=== PATIENT | female | born 1985 | race Caucasian/White ===

== ENCOUNTER 2019-02-02 10:29 | Outpatient (REF) | payer BC, SELFPAY ==
--- NOTE | 2019-02-02 08:45 | PAPFT_PTH ---
PATIENT: Daja Butt LOC: [facility]#:[id number] AGE/SX: 33/F ROOM: RE02/02/[address]: Indira Lainez : 1985 BED: DIS: 02/02/2019 SPEC #: [id number] RECD: 02/02/19 17:57 STATUS: CLAU REMarina #: [id number] ADILENE: 02/02/19 08:[address]: Indira Lainez DEPT: [facility] Cytology RECD BY: Kristin Sosa ENTERED: 02/02/19 17:58 SP TYPE: PAPFT OTHR DR: Reginald Chao Tissues: 1 - CX/ENDOCX FOR PAP SMEARS Procedures: PAP THIN PREP/[facility]VM Screening HPV DNA PROBE Comments: [id number]
== END 2019-02-02 10:49 ==
LOC: NCHCN 10:29
PROVIDERS: PCP Nurse Practitioner Family; Visit Provider Family Medicine
DX: Z00.00 Encounter for general adult medical examination without abnormal findings (principal); Z12.4 Encounter for screening for malignant neoplasm of cervix; Z11.51 Encounter for screening for human papillomavirus (HPV)
CPT/HCPCS: 88142; 87624

== ENCOUNTER 2019-09-12 09:28 | Outpatient (REF) | payer BC, SELFPAY | END 2019-09-12 09:48 | LOC: LBO 09:28 | PROVIDERS: PCP Student in an Organized Health Care Education/Training Program; Visit Provider Internal Medicine | DX: N39.0 Urinary tract infection, site not specified (principal) | CPT/HCPCS: 87077; 87086; 87186 ==

== ENCOUNTER 2019-12-15 08:07 | Outpatient (CLI) | payer BC, SELFPAY ==
[2019-12-16 17:57] LABS: COVID-19 RT-PCR Result NEGATIVE (Negative)
== END 2019-12-15 08:27 ==
PROVIDERS: PCP Student in an Organized Health Care Education/Training Program; Visit Provider Surgery Plastic and Reconstructive Surgery
DX: Z11.59 Encounter for screening for other viral diseases (principal); Z01.818 Encounter for other preprocedural examination
CPT/HCPCS: U0003

== ENCOUNTER 2020-07-26 09:13 | Outpatient (CLI) | payer BC, SELFPAY ==
[2020-07-27 13:13] LABS: COVID-19 RT-PCR UVMMC Result Negative (Negative)
== END 2020-07-26 09:14 | disposition home or self-care (01) ==
PROVIDERS: PCP Student in an Organized Health Care Education/Training Program; Visit Provider Student in an Organized Health Care Education/Training Program
DX: Z20.822 Contact with and (suspected) exposure to COVID-19 (principal)
CPT/HCPCS: U0003

== ENCOUNTER 2020-11-18 15:51 | Outpatient (REF) | payer BC, SELFPAY | END 2020-11-18 15:52 | disposition home or self-care (01) | LOC: LBN 15:51 | PROVIDERS: PCP Student in an Organized Health Care Education/Training Program; Visit Provider Nurse Practitioner Adult Health | DX: N39.0 Urinary tract infection, site not specified (principal) | CPT/HCPCS: 87077; 87086; 87186 ==

== ENCOUNTER 2021-03-10 09:53 | Outpatient (CLI) | payer BC, SELFPAY ==
--- NOTE | 2021-03-10 09:30 | DI.RAD_ITS ---
Exam(s) XR KNEE RT 3V AP,LAT,YONATAN EXAM: XR KNEE RT 3V AP,LAT,YONATAN CLINICAL HISTORY: painless knee effusion; atraumatic, M25.461. TECHNIQUE: 2D digital imaging was performed. COMPARISON: No exams were available for comparison FINDINGS: No evidence of acute fracture but there does appear be a joint effusion which would signify possible internal derangement. No degenerative changes. No osseous lesions. IMPRESSION: DATA REPOSITORY: RADIATION DOSE DELIVERED:
== END 2021-03-10 10:13 ==
PROVIDERS: PCP Student in an Organized Health Care Education/Training Program; Visit Provider Nurse Practitioner Adult Health
DX: M25.461 Effusion, right knee (principal)
CPT/HCPCS: 73562

== ENCOUNTER 2021-03-10 11:34 | Outpatient (REF) | payer BC, SELFPAY ==
[2021-03-10 15:49] LABS: Abs Immature Grans 0.01 10^3/uL (0.0-0.06); Absolute Basophil Count 0.03 10^3/uL (0.0-0.2); Absolute Eosinophil Count 0.07 10^3/uL (0.0-0.7); Absolute Lymphocyte Count 1.52 10^3/uL (1.2-3.4); Absolute Monocyte Count 0.41 10^3/uL (0.1-0.8); Absolute Neutrophil Count 5.28 10^3/uL (1.2-6.7); Basophils % 0.4; HCT 40.8 % (36.0-46.0); HGB 13.1 g/dL (11.2-15.7); Immature Grans % 0.1; Lymphocytes % 20.8; MCH 29.2 pg (27.0-33.0); MCHC 32.1 % (32.0-36.0); MCV 91.1 fL (80-95); MPV 11.3 fL (8.0-11.0); Monocytes % 5.6; Neutrophils % 72.1; Nucleated RBC 0 %; Platelet Count 229 10^3/uL (130-400); RBC 4.48 10^6/uL (3.93-5.22); RDW 13.7 % (11.7-14.6); RDW-SD 46.2 fL; WBC 7.32 10^3/uL (4.4-10.8)
[2021-03-10 15:52] LABS: ESR 10 mm/hr (0-20)
[2021-03-10 18:18] LABS: Uric Acid 3.1 mg/dL (2.6-6.0)
[2021-03-10 21:51] LABS: Rheumatoid Factor <8.6 IU/mL (<12.0)
[2021-03-11 10:27] LABS: Cyclic Citrullinated Peptide <2.5 U/mL (<5.0)
[2021-03-11 10:45] LABS: Lyme Ab w Rflx to Lyme Confirm Negative (Negative)
== END 2021-03-10 11:35 | disposition home or self-care (01) ==
LOC: LBN 11:34
PROVIDERS: PCP Student in an Organized Health Care Education/Training Program; Visit Provider Nurse Practitioner Adult Health
DX: M25.661 Stiffness of right knee, not elsewhere classified; M25.461 Effusion, right knee
CPT/HCPCS: 85652; 86200; 84550; 85025; 86431; 86618

== ENCOUNTER 2021-10-02 09:52 | Outpatient (CLI) | payer BC, SELFPAY ==
--- NOTE | 2021-10-02 09:15 | DI.RAD_ITS ---
Exam(s) XR KNEE RT 1V EXAM: XR KNEE RT 1V CLINICAL HISTORY: eval R patellofemoral pain. TECHNIQUE: 2D digital imaging was performed. COMPARISON: CR XR KNEE RT 3V AP,LAT,YONATAN from 03/10/2021 FINDINGS: Single merchant's view Is situated normally. There is no narrowing of retropatellar space. No osteochondral defects. Bone density appears normal. No obvious degenerative subarticular cysts. IMPRESSION: DATA REPOSITORY: RADIATION DOSE DELIVERED:
== END 2021-10-02 09:53 | disposition home or self-care (01) ==
LOC: DIORS 09:52
PROVIDERS: PCP Student in an Organized Health Care Education/Training Program; Referring Provider Student in an Organized Health Care Education/Training Program; Visit Provider Student in an Organized Health Care Education/Training Program
DX: M22.2X1 Patellofemoral disorders, right knee (principal)
CPT/HCPCS: 73560

== ENCOUNTER → 2021-10-27 00:58 | Outpatient (CLI) | payer BC, SELFPAY ==
--- NOTE | 2021-10-27 06:30 | DI.MRI_ITS ---
Exam(s) MR LOWER JOINT RT WO EXAM: MR LOWER JOINT RT WO CLINICAL HISTORY: R KNEE PAIN,effusion,patellofemoral syndrome,m25.561,m22.2x1,m25.461 TECHNIQUE: Multiplanar multisequence MRI was performed.. COMPARISON: No exams were available for comparison FINDINGS: MR examination of the knee was performed according to the usual protocol. There is a large knee joint effusion knee joint effusion. No significant bony signal abnormality seen. Medial tibiofemoral joint: The articular cartilage of the tibia appears well maintained. However, th ere is thinning and irregularity of femoral condylar articular cartilage with an approximately 9 x 10 millimeter central defect. The meniscus and attachments appear intact. The medial collateral ligam ent appears intact. No posteromedial corner injury seen. Lateral tibiofemoral joint: The articular cartilage of the tibia appears well maintained. There is i rregular thinning of the central portion of the femoral articular cartilage with some small clefts pr esent centrally. The meniscus and attachments appear intact. The lateral collateral ligament comple x and posterolateral corner structures appear intact. Patellofemoral joint and extensor mechanism: The articular cartilage of the patellofemoral joint is a bnormal with a 17 x 13 millimeter free flap of trochlear articular cartilage which is not attached to the underlying femoral cortex and with moderate thinning of the articular cartilage of the lateral p atellar facet inferiorly with some clefts extending to the underlying cortical surface of the patella .. The superior and inferior patellar fat pads show moderate signal abnormality. The quadriceps tendon and patellar tendon appear intact with no evidence of a tear or significant cecilia ma. The medial and lateral retinacula appear intact. Cruciate ligaments: Cruciate ligaments and attachments appear normal with no evidence of a tear. Tibiofibular joint: No specific abnormality involving the tibiofibular joint. IMPRESSION: There are significant articular cartilage defects as described above involving patellofemoral joint a nd medial and lateral tibiofemoral joints. No other evidence of internal derangement. DATA REPOSITORY:
== END ==
PROVIDERS: PCP Student in an Organized Health Care Education/Training Program; Visit Provider Student in an Organized Health Care Education/Training Program
DX: M22.2X1 Patellofemoral disorders, right knee (principal); M25.461 Effusion, right knee; M25.561 Pain in right knee
CPT/HCPCS: 73721

== ENCOUNTER 2021-11-24 04:28 | Outpatient (CLI) | payer BC, SELFPAY ==
[2021-11-24 09:54] LABS: Calculated LDL 83 mg/dL (<100); Cholesterol 165 mg/dL (<200); HDL Cholesterol 72 mg/dL (40-60); Triglyceride 54 mg/dL (<150)
== END 2021-11-24 04:29 | disposition home or self-care (01) ==
PROVIDERS: PCP Student in an Organized Health Care Education/Training Program; Visit Provider Student in an Organized Health Care Education/Training Program
DX: Z13.220 Encounter for screening for lipoid disorders (principal)
CPT/HCPCS: 36415; 80061

== ENCOUNTER 2021-12-03 04:03 | Outpatient (CLI) | payer BC, SELFPAY ==
[2021-12-03 12:03] LABS: Source Nasal/Nares
[2021-12-03 18:22] LABS: COVID-19 PCR Negative (Negative)
== END 2021-12-03 04:04 | disposition home or self-care (01) ==
LOC: LBO 04:03
PROVIDERS: PCP Student in an Organized Health Care Education/Training Program; Visit Provider Student in an Organized Health Care Education/Training Program
DX: Z20.822 Contact with and (suspected) exposure to COVID-19 (principal); Z01.818 Encounter for other preprocedural examination
CPT/HCPCS: 87635

== ENCOUNTER 2021-12-05 08:56 | Day surgery (SDC) | payer BC, SELFPAY ==
[2021-12-05] VITALS (10 sets, daily range): BP systolic 100–123; BP diastolic 43–75; PULSE 67–87; RESP 15–20; TEMP 36.3–36.8; O2SAT 98–100; BMI 29.4
--- NOTE | 2021-12-05 09:54 | W.ANESPRE ---
General Info Date of Service Date Performed: 12/05/21 Height: 5 ft 3 in Weight: 75.296 kg Body Mass Index (BMI): 29.4 Surgical Procedure: Operation Date: 12/05/21 11:10 Proposed Procedure Side Surgeon p Knee Arthroscopy w/ any indicated Meniscal, Chondral and Synovial Surgery/ Possible Microfracture Right Odell Kirkpatrick MD Meds Allergies and Home Medications Allergies Allergy/AdvReac Type Severity Reaction Status Date / Time No Known Allergies Allergy Verified 12/05/21 09:22 Home Medication Medication Instructions Recorded multivitamin,gp-[id number] 1 tab PO DAILY 12/14/19 (Complete Multivitamin tablet) Current Visit Medications: Current Medications Generic Name Dose Route Start Last Admin Trade Name Freq PRN Reason Stop Dose Admin Ringer's Solution 1,000 mls @ 30 mls/hr 12/05/21 06:00 IV 01/03/22 23:59 INFUSION STEPHEN Cefazolin Sodium 2,000 mg/ 100 mls @ 200 mls/hr 12/05/21 06:00 Sodium Chloride IVPB 12/05/21 16:00 PREOP STEPHEN IV Miscellaneous Supplies 1 each 12/05/21 06:00 Iv Access IV 01/03/22 23:59 DIRECTED STEPHEN Oxycodone HCl 5 - 10 mg 12/05/21 07:02 Oxycodone 5 Mg Tab PO Q4H PRN PRN Sodium Chloride 0 ml 12/05/21 06:00 Normal Saline Flush 10 Ml Syr IV 01/03/22 23:59 PRN PRN Sodium Chloride 0 ml 12/05/21 06:00 Normal Saline 10 Ml Vial IJ 01/03/22 23:59 DIRECTED PRN Sterile Water 0 ml 12/05/21 06:00 Water,Injection,Sterile 10 Ml Vial IJ 01/03/22 23:59 DIRECTED PRN PFSH Active Problems Active Problems: Problem Status Onset Code Chondromalacia, 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 COVID-19 Nov 2020 Hx of sebaceous cyst Surgical History Surgical History H/O excision of epidermal inclusion cyst (~06/02/19) Status post incision and drainage Tobacco Smoking/Tobacco Use Status: Never Passive smoking exposure: No Alcohol Alcohol Intake: current Alcohol intake frequency: a few times a week Alcohol type: wine and hard liquor Substance Use Substance use: Never Substance use type: does not use Vital Signs and Lab Results Vital Signs Most Recent Vital Signs in EMR: Most Recent Vital Signs Temp Pulse Resp BP Pulse Ox 36.4 C L 76 18 123/75 100 12/05/21 09:23 12/05/21 09:23 12/05/21 09:23 12/05/21 09:23 12/05/21 09:23 Point of Care Results Point of Care Results: POC- Test(urine) Negative 12/05/21 09:23 Lab Results Blood Type / Crossmatch: No Data to Display Complete Blood Count: No Data to Display Complete Metabolic Panel: No Data to Display Liver Function Panel: No Data to Display Coagulation Panel: No Data to Display Cardiac Panel: No Data to Display Arterial Blood Gas: No Data to Display Venous Blood Gas: No Data to Display Pancreas Panel: No Data to Display Thyroid Panel: No Data to Display Infectious Disease: Coronavirus (COVID-19)(PCR) Negative (Negative) 12/03/21 07:55 Coronavirus 2019 Source Nasal/Nares 12/03/21 07:55 Blood Cultures: No Data to Display Toxicology Panel: No Data to Display Panel: No Data to Display Anesthesia Assessment and Plan Anesthesia History Personal History: No History of Anesthesia Complications Family History: No Family History of Anesthesia Complications Exercise Tolerance Exercise Tolerance: Metabolic Equivalents>4 Pertinent Negatives Pertinent Negatives: No Symptoms of GERD, No Major Cardiovascular Symptoms or Complaints and No Major Pulmonary Symptoms or Complaints Cardiac & Pulmonary Exam Cardiac Exam: Normal S1/S2 Heart Sounds Pulmonary Exam: Clear Bilateral Breath Sounds Implantable Cardiac Device Does patient have a Pacemaker or an ICD?: No Airway Exam Known Difficult Airway: No Mallampati Class: 1 Mouth Opening: Normal (> 3cm) Thyromental Distance: Greater than 3 cm Neck Range of Motion: Full ROM Neck Circumference: Normal Teeth Condition: Normal Dentition ASA Classification ASA Score: ASA 2 Emergency Case?: No NPO Status NPO Status: NPO Clears >2 hours, Solids >8 hours Status Status: Negative HCG Anesthesia Plan Resuscitation Status: Full Code Anesthesia Technique: General Anesthesia Airway Planned: LMA Monitors Used: Standard Monitors
[2021-12-05] MEDS: Lactated Ringers 1,000 ML 30 ML IV (10:13)
[2021-12-05] MEDS: ceFAZolin 2,000 MG in Normal Saline 100 ML 200 MG IVPB (10:42)
[2021-12-05] MEDS: Lidocaine 1.5 % Pres-Free W/EPI 1/200,000 30 ML VIAL (11:22)
[2021-12-05] MEDS: EPINEPHrine 30 MG/30 ML VIAL (11:23)
[2021-12-05] MEDS: Bupivacaine 0.25% Pres-Free 30 ML VIAL ×2 (11:24→11:47)
--- NOTE | 2021-12-05 11:30 | ROE_ITS ---
Operative Note Operative Note DATE OF PROCEDURE: 12/05/21 PRE-OP DIAGNOSIS: Right knee 1. Trochlea cartilage lesion 2. Medial femoral condyle cartilage lesion POST-OP DIAGNOSIS: same Right knee 1. Trochlea cartilage lesion 2. Medial femoral condyle cartilage lesion 3. Large loose cartilaginous body PROCEDURE: Right knee 1. Arthroscopic loose body removal, CPT #88582: Large loose cartilaginous body from posterior lateral compartment 2. Trochlea and medial femoral condyle microfracture, CPT #80938 3. Osteochondroplasty, CPT #44904: Medial gutter marginal osteophyte SURGEON: Odell Kirkpatrick SIGN LANGUAGE TRANSLATOR: None None ANESTHESIA TYPE: Local By Surgeon and General LMA/ETT Refer to Anesthesia Record ESTIMATED BLOOD LOSS: 5 PATHOLOGY: none sent TOURNIQUET TIME: 0 COMPLICATIONS: None Patient was transported to: PACU Patient's condition: stable Indications: Please see complete medical record for details. Findings: Exam under anesthesia: Full range of motion, no instability Arthroscopic findings: Moderately large central trochlear cartilage lesion, nearly full thickness measuring about 14 x 18 mm. Moderate sized central distal medial femoral condyle cartilage lesion, nearly full-thickness measuring about 8 x 12 mm. Intact medial lateral menisci. Intact ACL. Intact lateral articular cartilage. Procedure Description: In the operating room, genral anesthesia was induced. The patient was positioned supine on the operating room table. All bony prominences were well- padded. Preoperative antibiotics were administered. The knee was prepped and draped in the usual sterile fashion. The correct patient, procedure, and side of the procedure were all verified prior to incision. Exam under anesthesia was performed. 10 cc of 0.25% bupivacaine containing epinephrine was infiltrated about the planned anteromedial and anterolateral knee arthroscopy portals. The portals were established and a complete diagnostic arthroscopy was performed with relevant findings detailed above. The trochlea cartilage lesion was examined. The expected large unstable cartilage flap was not present. Instead the bed of the lesion was exposed. The margins were probed and a curette used to establish vertical stable whitaker. The bed of the lesion was lightly debrided of chronic fibrinous material overlying bone. Similarly, the medial femoral condyle cartilage lesion was inspected and prepared. Along the medial gutter there was a small marginal osteophyte. The mechanical shaver was used to perform an osteochondroplasty and resect this to a smooth margin. The large unstable cartilage flap from the trochlea was not found suprapatellar, medial or lateral gutter, medial lateral compartment, or intercondylar area. Prior to bleeding the case with microfracture, the arthroscope was driven through the notch into the posterior lateral compartment. The entire trochlear cartilage piece measuring about 15 x 17 mm was present posterior to the lateral femoral condyle. Carefully, and arthroscopic grasper was directed between the lateral wall into the posterior lateral compartment and direct pressure from behind the knee used to assist the piece into the grasper. This large cartilaginous loose body was brought into the anterior intercondylar area. The anteromedial portal was dilated to accommodate removal. A straight snap was then used to secure the cartilage piece and remove it in entirety under arthroscopic visualization. It contained full?thickness cartilage with no bone. It was placed into a specimen cup for the patient. Lastly, the microfracture was done using a 1.6 mm K wire and sequentially dri lling the medial femoral condyle lesion through the anterior medial portal. Percutaneously, just medial to the patella with the patella translated laterally needle localization followed by K wire used to appropriately drill the trochlear lesion at a perpendicular angle. Both lesions had excellent expression of bone marrow factors with inflow turned off about the beds of the cartilage lesions. Under direct arthroscopic visualization an 18-gauge needle was passed into the knee from superolateral into the suprapatellar pouch. The knee was copiously irrigated with arthroscopic fluid until there was a clear effluent before being drained of all fluid. The anteromedial and anterolateral portals were closed in 3-0 Monocryl in a buried interrupted fashion. 20 cc of 0.25% bupivacaine plain containing 4 mg of morphine was infiltrated into the knee through the previously placed needle. Mastisol, Steri-Strips, and 4 x 4 gauze were applied over the incisions followed by sterile soft roll. The knee was then wrapped gently with an LINCOLN comressive bandage. The patient awoke from anesthesia without complication and was transferred to the recovery room in a stable condition.
[2021-12-05] MEDS: MORPHine 4 MG/ML SYR (11:47)
[2021-12-05] MEDS: fentaNYL 100 MCG/2 ML VIAL IVP ×3 (12:25→12:59)
--- NOTE | 2021-12-05 12:33 | W.PM.DSUDISC ---
Discharge Plan Disposition Patient Disposition: HOME Condition: Stable Discharge Details Reason For Visit: Right knee surgery Attending Provider: Odell Kirkpatrick Primary Care Provider: Fozia Bennett Home Meds and New Rx's Prescriptions: New aspirin 81 mg tablet,delayed release (DR/EC) 81 mg PO DAILY 14 Days Qty: 14 0RF naproxen 250 mg tablet 250 - 500 mg PO BID PRNQty: 40 0RF Rx Instructions: take with a meal oxycodone 5 mg tablet 5 - 10 mg PO Q4H MDD 30 mg PRN (Reason: moderate to severe pain) Qty: 18 0RF Continued Complete Multivitamin Tablet 1 tab PO DAILY Discharge Instructions Additional Instructions: Surgery: Right knee arthroscopy with trochlear and medial femoral condyle microfracture and removal of loose cartilaginous body Activity: Partial weightbearing (less than 50%) with crutches for 6 weeks. Restore full knee extension as soon as possible. Advance flexion as comfort allows. Recommend avoiding sports, pivoting, and squatting for 2-3 months. A physical therapy prescription will be prescribed in the office at follow-up if needed. Prescriptions: Aspirin 81 mg take 1 daily to prevent a blood clot for 14 days Naproxen 250 mg take 1-2 every 12 hours with a meal as needed for moderate pain Oxycodone 5 mg take 1-2 every 4-6 hours as needed for severe pain You may use [id number] Tylenol (acetaminophen) as needed for mild pain. These pain medications may be taken all at once or in different combinations as needed. Also, recommend Colace (docusate) as a stool softener as surgery and pain medicine cause constipation. You may try [id number]-uea-[id number] diphenhydramine (Benadryl) 25-50 mg nightly as a sleep aid Dressings: Leave dressing in place for 3 days. May then remove and leave open to air or cover incisions with Band-Aids. May shower after 5 days. Follow-up: 10-[address] Kirkpatrick Let us know right away if you develop any redness, drainage, fevers, chest pain, or trouble breathing. Do not drink alcohol or drive for at least 24 hours after anesthesia. Please call the office during business hours with any questions or concerns. Discharge Orders Discharge Orders: Discharge Order (Routine); Ordered 12/05/21 Ordered By: Odell Kirkpatrick
--- NOTE | 2021-12-05 13:46 | W.ANESPOSTOP ---
Postoperative Evaluation Date, Time and Location Date Performed: 12/05/21 Time Performed: 13:46 Patient Location: Day Surgery Unit Vital Signs Most Recent Imported Vital Signs: Most Recent Vital Signs Temp Pulse Resp BP Pulse Ox 36.4 C L 78 18 111/54 L 100 12/05/21 13:21 12/05/21 13:21 12/05/21 13:21 12/05/21 13:21 12/05/21 13:21 Pain Score Most Recent Pain Score: Most Recent Pain Score Pain Level 5 12/05/21 13:21 Assessment Mental Status: Awake (Alert & Oriented to Patient Baseline) Airway and Respiratory Function: Patent airway with normal (patient baseline) respiratory exam Cardiovascular Function: Hemodynamically Stable Hydration Status: Adequately Hydrated Nausea & Vomiting: No Nausea or Vomiting Pain: Pain is tolerable per patient Peripheral Nerve Block: Patient did not receive a nerve block
[2021-12-05] MEDS: Acetaminophen 500 MG TAB 1000 MG PO (13:55)
== END 2021-12-05 14:50 | disposition home or self-care (01) ==
PROVIDERS: PCP Student in an Organized Health Care Education/Training Program; Visit Provider Student in an Organized Health Care Education/Training Program
PROC: (CPT 29870; principal; 2021-12-05 11:00)
DX: M23.41 Loose body in knee, right knee (principal); M23.91 Unspecified internal derangement of right knee; M25.761 Osteophyte, right knee
CPT/HCPCS: 29879; J0690; J1100; J1885; J2250; J2270; J2405; J2704; J3010

== ENCOUNTER 2022-03-07 11:24 | Outpatient (REF) | payer BC, SELFPAY ==
[2022-03-07 20:05] LABS: Bacteria Many HPF (Negative); C & S Indicated? C&S Done As Ordered; Casts Negative LPF (Negative); Crystals Negative HPF (Negative); Epithelial Cells Few HPF (Negative); Mucus Moderate (Negative)
== END 2022-03-07 11:25 | disposition home or self-care (01) ==
LOC: LBN 11:24
PROVIDERS: PCP Student in an Organized Health Care Education/Training Program; Visit Provider Physician Assistant Medical
DX: R30.0 Dysuria (principal)
CPT/HCPCS: 87077; 81015; 87086; 87186

== ENCOUNTER 2022-10-28 03:51 | Outpatient (CLI) | payer BC, SELFPAY ==
[2022-10-28 09:17] LABS: Anion Gap 8.2 mmol/L (3-11); BUN 14 mg/dL (7-18); CO2 27.8 mmol/L (21.0-32.0); CREATININE 0.8 mg/dL (0.55-1.02); Calcium 8.7 mg/dL (8.5-10.1); Chloride 104 mmol/L (98-107); Estimated GFR 99.09 (mL/min/1.73m2); Glucose 82 mg/dL (74-106); Potassium 3.7 mmol/L (3.5-5.1); Sodium 140 mmol/L (136-145); TSH (W/Ref FT4) 1.76 uIU/mL (0.36-3.74)
== END 2022-10-28 03:52 | disposition home or self-care (01) ==
PROVIDERS: PCP Student in an Organized Health Care Education/Training Program; Visit Provider Student in an Organized Health Care Education/Training Program
DX: N92.6 Irregular menstruation, unspecified; R53.83 Other fatigue; I10 Essential (primary) hypertension
CPT/HCPCS: 36415; 80048; 84443

== ENCOUNTER 2025-01-24 14:47 | Outpatient (REF) | payer BC, SELFPAY ==
--- NOTE | 2025-01-24 14:30 | PAPFT_PTH ---
PATIENT: Daja Butt LOC: [facility] U#:[id number] AGE/SX: 39/F ROOM: RE01/24/[address]: Cherry Quintero APRN : 1985 BED: DIS: 01/24/2025 SPEC #: [id number] RECD: 01/25/25 12:48 STATUS: CLAU REQ #: [id number] ADILENE: 01/24/25 14:[address]: Cherry Quintero DEPT: [facility] Cytology RECD BY: Kristin Sosa Tissues: 1 - CX/ENDOCX FOR PAP SMEARS Procedures: PAP THIN PREP/UVM Screening HPV DNA PROBE Comments: [id number] (HPV 16 & 18/45)
== END 2025-01-24 14:48 | disposition home or self-care (01) ==
LOC: LBN 14:47
PROVIDERS: PCP Nurse Practitioner Adult Health; Visit Provider Nurse Practitioner Adult Health
DX: Z12.4 Encounter for screening for malignant neoplasm of cervix (principal)
CPT/HCPCS: 88142; 87624